=== PATIENT | female | born 1995 | race Caucasian/White ===

== ENCOUNTER 2018-12-23 10:26 | Inpatient (IN) | payer BC ==
[~2018-12-23] VITALS: Ht 162.6 cm; Wt 108.9 kg
[2018-12-23 10:35] VITALS: Ht 162.6 cm; Wt 108.9 kg
[2018-12-23 11:15] LABS: PLATELET COUNT 342 x10^3mcL (130-400); RED CELL DISTRIBUTION WIDTH 14.1 % (11.5-14.5)
[2018-12-23 11:57] LABS: CALCIUM 9.7 mg/dL (8.5-10.1); CHLORIDE SERUM 105 mmol/L (98-107); CREATININE SERUM 0.7 mg/dL (0.6-1.0); GFR1 > 60 mL/min; GLUCOSE SERUM 107 mg/dL (74-106); POTASSIUM SERUM 3.9 mmol/L (3.5-5.1); SODIUM SERUM 143 mmol/L (136-145)
[2018-12-23 12:02] LABS: ALBUMIN 4.2 g/dL (3.4-5.0); ALKALINE PHOSPHATASE 55 U/L (46-116); ALT/SGPT 28 U/L (14-59); AST/SGOT 11 U/L (15-37); BILIRUBIN TOTAL 0.39 mg/dL (0.20-1.00); LIPASE 78 IU/L (73-393)
[2018-12-23 13:36] VITALS: BP 119/69
[2018-12-23 14:05] LABS: BAND NEUTROPHIL 7 % (0-10); MONOCYTE 6 % (0-7); SEGMENTED NEUTROPHILS 72 % (37-75)
[2018-12-23 14:06] LABS: PLATELET MORPHOLOGY PLATELETS NORMAL; rbc morphology (normal/abnorm) NORMAL (NORMAL)
[2018-12-23 22:00] VITALS: BP 100/56
[2018-12-24 05:50] VITALS: BP 101/51
[2018-12-24 06:01] LABS: BASOPHIL % 0.2 % (0-2); PLATELET COUNT 317 x10^3mcL (130-400); RED CELL DISTRIBUTION WIDTH 14.5 % (11.5-14.5)
[2018-12-24 06:17] LABS: CALCIUM 8.6 mg/dL (8.5-10.1); CARBON DIOXIDE 27.7 mmol/L (21-32); CHLORIDE SERUM 108 mmol/L (98-107); CREATININE SERUM 0.7 mg/dL (0.6-1.0); GFR1 > 60 mL/min; GLUCOSE SERUM 132 mg/dL (74-106); POTASSIUM SERUM 3.9 mmol/L (3.5-5.1); SODIUM SERUM 144 mmol/L (136-145)
[2018-12-24 08:50] VITALS: BP 104/63
[2018-12-24 17:44] VITALS: BP 106/62
[2018-12-24 19:58] VITALS: BP 105/56
[2018-12-25 05:04] VITALS: BP 133/64
[2018-12-25 07:18] LABS: BASOPHIL % 0.7 % (0-2); PLATELET COUNT 258 x10^3mcL (130-400)
[2018-12-25 07:28] LABS: CALCIUM 8.4 mg/dL (8.5-10.1); CARBON DIOXIDE 26.3 mmol/L (21-32); CHLORIDE SERUM 111 mmol/L (98-107); CREATININE SERUM 0.8 mg/dL (0.6-1.0); GFR1 > 60 mL/min; GLUCOSE SERUM 106 mg/dL (74-106); POTASSIUM SERUM 3.6 mmol/L (3.5-5.1); SODIUM SERUM 148 mmol/L (136-145)
[2018-12-25 07:35] LABS: RED CELL DISTRIBUTION WIDTH 14.6 % (11.5-14.5)
[2018-12-25 09:00] VITALS: BP 122/55
[2018-12-25 14:23] VITALS: BP 122/55
== END 2018-12-25 14:50 | disposition home or self-care (01) | DRG 330 ==
LOC: ED 10:26 → MU 12:32
PROVIDERS: Emergency Medicine; Family Medicine Addiction Medicine; Internal Medicine; ADMIT Internal Medicine Pulmonary Disease
PROC: 0DBH4ZZ Excision of Cecum, Percutaneous Endoscopic Approach (ICD-10-PCS; 2018-12-23)
PROC: 0DNW4ZZ Release Peritoneum, Percutaneous Endoscopic Approach (ICD-10-PCS; 2018-12-23)
PROC: 0DTJ4ZZ Resection of Appendix, Percutaneous Endoscopic Approach (ICD-10-PCS; principal; 2018-12-23 14:00)
DX: K35.80 Unspecified acute appendicitis (principal); Z68.41 Body mass index [BMI] 40.0-44.9, adult; E87.1 Hypo-osmolality and hyponatremia; D72.829 Elevated white blood cell count, unspecified; E66.9 Obesity, unspecified; E87.8 Other disorders of electrolyte and fluid balance, not elsewhere classified
CPT/HCPCS: G0378; J0330; J0690; J0696; J1170; J2001; J2270; J2405; J2543; J2704; J2710; J3010; J3490; J7030; J7042; J7120

== ENCOUNTER 2019-05-14 20:24 | Emergency (ER) | payer BC ==
[~2019-05-14] VITALS: Ht 165.1 cm; Wt 101.2 kg
[2019-05-14 20:41] VITALS: Ht 165.1 cm; Wt 101.2 kg
[2019-05-14 21:44] LABS: CALCIUM 9.4 mg/dL (8.5-10.1); CHLORIDE SERUM 103 mmol/L (98-107); CREATININE SERUM 0.8 mg/dL (0.6-1.0); GFR1 > 60 mL/min; GLUCOSE SERUM 99 mg/dL (74-106); SODIUM SERUM 144 mmol/L (136-145)
[2019-05-14 21:45] LABS: BASOPHIL % 0.4 % (0-2); PLATELET COUNT 314 x10^3mcL (130-400); RED CELL DISTRIBUTION WIDTH 14.5 % (11.5-14.5)
[2019-05-14 21:49] LABS: ALBUMIN 4.5 g/dL (3.4-5.0); ALKALINE PHOSPHATASE 59 U/L (46-116); ALT/SGPT 25 U/L (14-59); AST/SGOT 17 U/L (15-37); BILIRUBIN TOTAL 0.3 mg/dL (0.20-1.00); LIPASE 123 IU/L (73-393)
[2019-05-14 21:51] LABS: TOTAL PROTEIN, SERUM 8.4 g/dL (6.4-8.2)
[2019-05-15 02:59] VITALS: BP 103/62
== END 2019-05-15 02:59 | disposition home or self-care (01) ==
LOC: ED 20:24
PROVIDERS: Emergency Medicine
DX: R10.814 Left lower quadrant abdominal tenderness (principal); Z90.89 Acquired absence of other organs
CPT/HCPCS: J2060; J2405; J7030; Q9967